=== PATIENT | male | born 1970 | race Caucasian/White ===

== ENCOUNTER → 2024-09-27 | Emergency (ER) | payer MEDICAID ==
[~2024-09-27] VITALS: Ht 177.8 cm; Wt 107.5 kg
[~2024-09-27] MED LIST: HYDR-4808 PO; SERT-158 PO; TRAZ-252 PO
[2024-09-27 17:45] VITALS: TEMP 98.6
[2024-09-27 18:16] LABS: EOSINOPHILS % (AUTO) 3.7 % (1.0-6.0); HEMATOCRIT 48.9 % (41-53); HEMOGLOBIN 16.1 g/dL (13.5-17.5); LYMPHOCYTES # (AUTO) 2.4 K/uL (1.0-4.8); LYMPHOCYTES % (AUTO) 35.4 % (22.0-44.0); MEAN CORPUSCULAR HGB CONC 32.9 G/dL (31.0-37.0); MEAN CORPUSCULAR VOLUME 100 fL (80-100); MONOCYTES # (AUTO) 0.6 K/uL (0.1-1.0); MONOCYTES % (AUTO) 8.1 % (2.0-9.0); NEUTROPHILS # (AUTO) 3.5 K/uL (1.8-7.7); NEUTROPHILS % (AUTO) 51.8 % (40.0-70.0); PLATELET COUNT (AUTO) 151 K/uL (150-450); RED BLOOD CELL COUNT(AUTO) 4.87 MIL/uL (4.50-5.90); RED CELL DISTRIBUTION WIDTH 14.9 % (11.5-14.5); WHITE BLOOD COUNT (AUTO) 6.9 K/uL (4.5-11.0)
[2024-09-27 18:22] LABS: ALCOHOL, BLOOD (SERUM) 270 mg/dL (0-10)
[2024-09-27 18:23] LABS: ANION GAP 10 mmol/L (8-16); CALCIUM, TOTAL 8.3 mg/dL (8.8-10.5); CARBON DIOXIDE 26 mmol/L (22-29); CHLORIDE 108 mmol/L (98-107); CREATININE 0.86 mg/dL (0.60-1.30); GLOMERULAR FILTR. RATE CALC > 60 mL/min (>60); GLUCOSE,RANDOM 99 mg/dL (70-110); SODIUM SERUM 144 mmol/L (136-145); UREA NITROGEN, BLOOD 10 mg/dL (7-18)
[2024-09-27 20:14] LABS: COVID AG,FIA SOURCE NASAL SWAB
[2024-09-27 20:34] LABS: SARS-COV2 (COVID) ANTIGEN,FIA Negative (Negative)
[2024-09-27 23:04] VITALS: BP 126/84; PULSE 88; RESP 17; O2SAT 95
== END ==
LOC: EMS 17:06
DX: F20.9 Schizophrenia, unspecified (principal); F10.129 Alcohol abuse with intoxication, unspecified; F17.210 Nicotine dependence, cigarettes, uncomplicated; Z20.822 Contact with and (suspected) exposure to COVID-19; Y90.8 Blood alcohol level of 240 mg/100 ml or more
CPT/HCPCS: 99285; 87426; 80048; 85025; 36415; G0480